=== PATIENT | female | born 1955 | race Caucasian/White ===

== ENCOUNTER 2024-10-29 10:12 | Day surgery (SDC) | payer MEDICARE, OTHER, SELFPAY ==
[2024-10-29 11:11] VITALS: BP 114/71; PULSE 78; RESP 16; TEMP 36.1; O2SAT 94
--- NOTE | 2024-10-29 12:07 | PM.HP.IH.1 ---
History of Present Illness History of Present Illness Date Patient Seen: 10/29/24 Time Patient Seen: 12:07 Chief complaint: Screening Colonoscopy Narrative: Positive fit test, had a colonoscopy at 49 with some polyps, again at 59 with no polyps. No bleeding, no change in bowel habits, no weight loss. Prep went well [facility] Social History Smoking Status: Never smoker alcohol intake: current Meds Home Medications and Allergies Home Medications Medication Instructions Recorded Confirmed Type levothyroxine 112 mcg tablet 112 mcg DAILY 10/29/24 10/29/24 History (Synthroid) Allergies Allergy/AdvReac Type Severity Reaction Status Date / Time amoxicillin [AMOXICILLIN] Allergy Mild RASH Verified 10/29/24 11:10 Review of Systems Review of Systems Narrative: No acute distress ROS: Yes All systems reviewed with the patient and are negative except as otherwise documented Exam Vital Signs (past 8 hours): - 10/29/24 11:11 Temperature 97 F L Pulse Rate 78 Respiratory Rate 16 Blood Pressure 114/71 Pulse Oximetry 94 Oxygen Delivery Method Room Air Oxygen Delivery Method Room Air Narrative Exam Narrative: Alert and oriented, no acute distress, abdomen benign Const General: cooperative HENMT Head: normal to inspection Assessment & Plan Assessment & Plan narrative: Positive fit test, planning for screening colonoscopy Time-Based Coding :: [TOTAL MINUTES] spent with patient and on the chart (including review of chart, obtaining history, exam, reviewing outside data, placing orders, documenting exam and treatment plan, and counseling patient) on [DATE]. [employer] Document charge(s): Yes
[2024-10-29 12:37] VITALS: BP 106/63; PULSE 78; RESP 14; TEMP 36.2; O2SAT 96
[2024-10-29 12:42] VITALS: BP 108/67; PULSE 79; RESP 12; O2SAT 97
--- NOTE | 2024-10-29 12:43 | PM.OP.COLON ---
Operative Date/Time/Diagnoses Date of procedure: 10/29/24 Time of procedure: 12:48 Pre-op diagnosis: Positive fit test Post-op diagnosis: same Procedure & Clinicians Study performed: Colonoscopy Same procedure as scheduled: Yes Indications: Positive fit test Surgeon: Kevyn Baugh Procedure Notes SCOAP/Timeout: Performed Procedure in detail: Patient seen in the preop area, H and P updated, positive fecal occult testing. Patient reported prep was adequate. Patient brought back to procedure room, time-out was performed verifying correct patient procedure. He was given sedation. External rectal exam was performed with no identified fissures, grade 2 internal and external hemorrhoids. Some skin tags. Digital rectal exam performed with no masses or blood. Colonoscope placed, colon insufflated, adequacy of prep was adequate but not perfect the scope was passed without difficulty to the cecum, verified by identification of the tinea and palpation in the right lower quadrant The scope was withdrawn with circumferential view of the colon, areas occluded by bowel prep or cleaned as much as possible. No lesions were identified upon removal of the scope. The scope was retroflexed in the rectum and no internal hemorrhoids were identified air was withdrawn from the colon, scope was withdrawn, and the patient was brought to the recovery area in stable condition. Scope withdrawal time: 10 min Specimen(s): none sent Complications: none Impression: Normal exam Post-procedure Recommendations: Colonoscopy in 10 years Plan for aftercare: PACU Follow up: as needed Disposition: PACU
[2024-10-29 12:47] VITALS: BP 115/82; PULSE 82; RESP 17; TEMP 36.3; O2SAT 96
[2024-10-29 13:05] VITALS: BP 122/79; PULSE 78; RESP 15; O2SAT 97
== END 2024-10-29 13:09 | disposition home or self-care (01) ==
DX: Z12.11 Encounter for screening for malignant neoplasm of colon (principal); Z86.0100 Personal history of colon polyps, unspecified; R19.5 Other fecal abnormalities; K64.1 Second degree hemorrhoids; K64.4 Residual hemorrhoidal skin tags
CPT/HCPCS: G0105; J2704